=== PATIENT | male | born 1960 | race African-American/Black ===

== ENCOUNTER 2017-05-30 15:47 | Emergency (ER) | payer MEDICAID, OTHER | END 2017-05-30 19:03 | disposition home or self-care (01) | LOC: FTE 15:47 | DX: R05 Cough (principal); F17.210 Nicotine dependence, cigarettes, uncomplicated | CPT/HCPCS: 99283; Z7502 ==

== ENCOUNTER 2017-06-13 15:39 | Emergency (ER) | payer MEDICAID ==
[2017-06-13] MEDS: ACETAMINOPHEN 325 MG TAB PO (18:57)
[2017-06-13] MEDS: KETOROLAC 15 MG INJ IV (18:59)
== END 2017-06-13 19:53 | disposition home or self-care (01) ==
LOC: FTE 15:39
DX: M62.838 Other muscle spasm (principal); R05 Cough; Z87.891 Personal history of nicotine dependence
CPT/HCPCS: 96374; 99284-25